=== PATIENT | male | born 1995 | race African-American/Black ===

== ENCOUNTER 2020-11-01 19:39 | Emergency (ER) | payer OTHER, SELFPAY ==
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
[2020-11-01 21:11] VITALS: BP 118/69; PULSE 97; RESP 18; TEMP 36.4; O2SAT 98; BMI 21.2
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
[2020-11-01] MEDS: Ibuprofen 600 MG TABLET PO (23:36)
[2020-11-01 23:41] VITALS: BP 122/75; PULSE 76; RESP 16; O2SAT 98
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
== END 2020-11-01 23:50 | disposition home or self-care (01) ==
PROVIDERS: Emergency Provider Internal Medicine
DX: S50.02XA Contusion of left elbow, initial encounter (principal); S09.90XA Unspecified injury of head, initial encounter; M25.522 Pain in left elbow; M25.521 Pain in right elbow; M79.632 Pain in left forearm; V19.9XXA Pedal cyclist (driver) (passenger) injured in unspecified traffic accident, initial encounter; Y93.9 Activity, unspecified; Y92.9 Unspecified place or not applicable; Y99.9 Unspecified external cause status
CPT/HCPCS: 73070; 73090; 99284